=== PATIENT | female | born 1995 | race Hispanic/Latino ===

== ENCOUNTER 2023-09-29 08:20 | Emergency (ER) | payer OTHER, SELFPAY ==
[2023-09-29] VITALS (13 sets, daily range): BP systolic 111–121; BP diastolic 65–84; PULSE 67–95; RESP 12–20; TEMP 36.4; O2SAT 99–100
--- NOTE | ~2023-09-29 | US_ITS ---
EXAMINATION: US OB <= 14 weeks fetus DATE: 09/29/2023 11:00 INDICATION: Vaginal bleeding during first trimester TECHNIQUE: Real-time pelvic transabdominal and transvaginal ultrasound was performed. COMPARISON: None. FINDINGS: The uterus measures 10.3 x 8.5 x 10.0 cm. There is an intrauterine gestational sac. h eart motion is identified measuring 159 beats per minute (bpm) by M-mode Doppler. The crown rum p length measures 4.9 cm, which correlates with an estimated gestational age of 11 weeks and 5 day(s) (+/-) 7 day(s). The left ovary is not visualized however no left adnexal abnormality is seen. The right ovary measure s 3.8 x 2.1 x 2.0 cm. There is normal vascular flow in the right ovary. There is no free fluid in the pelvis. IMPRESSION: 1. Live intrauterine with an estimated gestational age of 11 weeks and 5 day(s) (+/-) 7 day (s) and an estimated delivery date of 04/14/2024. No sonographic correlate for the patient's symptoms. Reviewed, dictated and finalized at location F. IMPRESSION: 1. Live intrauterine with an estimated gestational age of 11 weeks an d 5 day(s) (+/-) 7 day(s) and an estimated delivery date of 04/14/2024. No sonog raphic correlate for the patient's symptoms.
[2023-09-29 08:52] LABS: Basophils Absolute Auto 0.1 K/mm3 (0.0-0.1); Basophils Percent Auto 0.5 % (0.2-1.2); Eosinophils Percent Auto 0.4 % (0-4.4); Hematocrit 38.3 % (37.0-47.0); Hemoglobin 12.6 g/dL (12.0-15.0); Immature Granulocyte Absolute 0.02 K/mm3 (0.00-0.031); Immature Granulocyte Percent A 0.2 % (0-0.5); Lymphocytes Absolute Auto 2.02 K/mm3 (0.9-3.2); Lymphocytes Percent Auto 20.6 % (18.3-44.2); Mean Corpuscular HGB Conc 32.9 g/dl (32-36); Mean Corpuscular Hemoglobin 29.4 pg (26-34); Mean Corpuscular Volume 89.3 fl (80-100); Monocytes Absolute Auto 0.6 K/mm3 (0.1-0.6); Monocytes Percent Auto 5.7 % (2.6-8.5); Neutrophils Absolute Auto 7.1 K/mm3 (1.3-6.7); Neutrophils Percent Auto 72.6 % (45.5-73.1); Platelet Count Result 320 k/mm3 (150-375); Red Blood Count 4.29 M/mm3 (4.2-5.4); Red Cell Distribution Width 13.7 % (11.5-14.5); White Blood Count 9.8 K/mm3 (4.5-10.0)
--- NOTE | 2023-09-29 08:55 | ED.PREGNANCY ---
HPI - General Chief complaint: Vaginal Bleeding Stated complaint: vag bleed, 14 weeks Time Seen by Provider: 09/29/23 08:28 History of Present Illness HPI Narrative: 28-year-old female at approximately 13 weeks gestation presenting with spotting. Patient states her LMP was June 27. She had an appointment with her OB several weeks ago and they got an ultrasound which showed positive cardiac activity. Patient states that she woke up this morning and had some spotting so she became concerned and came in for evaluation. She denies any pain. She denies bright red blood or clots. States that it is just pink when she wipes. No further complaints. Related Data Allergies Allergy/AdvReac Type Severity Reaction Status Date / Time No Known Allergies Allergy Unverified 10/30/18 17:24 Review of Systems Review of Systems: All systems reviewed & are unremarkable except as noted in HPI and below Exam Narrative: GENERAL: Well-appearing, in no acute distress, pleasant and cooperative HEAD: Normocephalic, atraumatic. EYES: PERRLA and EOMI. ENT: Grossly unremarkable NECK: Supple. CHEST: Clear to auscultation. No respiratory distress. HEART: Regular rate and rhythm. ABDOMEN: Soft, nontender, nondistended EXTREMITIES: Normal range of motion. No edema. SKIN: Warm, dry, no rash. NEURO: No focal deficits. Alert and oriented x3. PSYCH: Normal mood and affect. Course Vital Signs Vital signs: Vital Signs Temperature 97.6 F 09/29/23 08:39 Pulse Rate 92 09/29/23 08:39 Respiratory Rate 16 09/29/23 08:39 Blood Pressure 121/84 09/29/23 08:39 Pulse Oximetry 99 09/29/23 08:39 Oxygen Delivery Room Air 09/29/23 08:39 Temperature 97.6 F 09/29/23 08:39 Pulse Rate 90 09/29/23 10:31 Respiratory Rate 14 09/29/23 10:31 Blood Pressure 115/70 09/29/23 10:31 Pulse Oximetry 99 09/29/23 10:31 Oxygen Delivery Room Air 09/29/23 08:39 MDM - OB/Uterine Contractions MDM Narrative Medical decision making narrative: 28-year-old female presenting with vaginal spotting in the setting of early . Vital stable. Exam remarkable for the above. Blood work is unremarkable. Stable hemoglobin. No leukocytosis. UA is concerning for UTI. ultrasound reveals a living intrauterine fetus with positive cardiac activity. Discussed the reassuring work-up with the patient. We will start her on Keflex for the UTI. Advised OB and PCP follow-up. Appropriate return precautions given. Discharged in stable condition. Differential Diagnosis Differential diagnosis: Likely other (UTI, vaginal bleeding, early ) Medical Records Attestation: I reviewed the patient's medical records. Lab Data Attestation: I reviewed the patient's lab results. 09/29/23 08:42 09/29/23 08:45 Labs: Lab Results 09/29/23 09/29/23 09/29/23 Range/Units 08:42 08:45 10:15 WBC 9.8 (4.5-10.0) K/mm3 RBC 4.29 (4.2-5.4) M/mm3 Hgb 12.6 (12.0-15.0) g/dL Hct 38.3 (37.0-47.0) % MCV 89.3 (80-100) fl MCH 29.4 (26-34) pg MCHC 32.9 (32-36) g/dl RDW 13.7 (11.5-14.5) % Plt Count 320 (150-375) k/mm3 MPV 10.0 (7.4-10.4) fl Immature Gran % (Auto) 0.2 (0-0.5) % Neut % (Auto) 72.6 (45.5-73.1) % Lymph % (Auto) 20.6 (18.3-44.2) % Grimes % (Auto) 5.7 (2.6-8.5) % Eos % (Auto) 0.4 (0-4.4) % Baso % (Auto) 0.5 (0.2-1.2) % Lymph # (Auto) 2.02 (0.9-3.2) K/mm3 Grimes # (Auto) 0.6 (0.1-0.6) K/mm3 Eos # (Auto) 0.0 (0-0.3) K/mm3 Baso # (Auto) 0.1 (0.0-0.1) K/mm3 Abs Immat Gran (auto) 0.02 (0.00-0.031) K/mm3 Absolute Neuts (auto) 7.1 H (1.3-6.7) K/mm3 Absolute Nucleated RBC 0.0 (0.0-0.012) K/mm3 Nucleated RBC % 0.0 (0.0-0.2) % PT 13.3 (11.1-14.7) Seconds INR 1.0 APTT 27.9 (22.3-36.8) SECONDS Sodium 133 L (137-145) mmol/L Potassium 3.7 (3.4-5.0) mmol/L Chloride 108 H
[2023-09-29 09:03] LABS: Prothrombin Time 13.3 Seconds (11.1-14.7)
[2023-09-29 09:04] LABS: Anion Gap 6 mmol/L (8-16); Blood Urea Nitrogen 6 mg/dL (7-17); Calcium 8.6 mg/dL (8.4-10.2); Carbon Dioxide 19 mmol/L (22-30); Chloride 108 mmol/L (98-107); Estimated CRCL calculation 151 ml/min; Estimated Glomerular Filt Rate > 60; Glucose 79 mg/dL (65-110); Partial Thromboplastin Time 27.9 SECONDS (22.3-36.8); Potassium 3.7 mmol/L (3.4-5.0); Sodium 133 mmol/L (137-145)
[2023-09-29 10:29] LABS: Appearance Urine Clear (Clear); Bacteria Urine Rare /hpf; Bilirubin Urine Negative (Negative); Blood Urine 1+ (Negative); Color Urine Yellow (Yellow); Glucose Urine UA Negative (Negative); Ketones Urine Negative (Negative); Leukocyte Esterase Ur 2+ LEU/UL (Negative); Nitrate Urine Negative (Negative); Non Pathogenic Casts 0-2; Protein Urine Negative (Negative); RBC Urine 0-2 /hpf (0-2); Specific Grav Ur 1.011 (1.001-1.035); Squamous Epithelial Cell Urine Few /hpf (Few); Urobilinogen Urine 0.2 mg/dL (<2.0); pH Urine 7.5 (5.0-9.0)
[2023-09-29 10:31] LABS: Add Urine Microscopic? YES
== END 2023-09-29 12:36 | disposition home or self-care (01) ==
PROVIDERS: Emergency Provider Emergency Medicine
DX: O23.41 Unspecified infection of urinary tract in pregnancy, first trimester (principal); N39.0 Urinary tract infection, site not specified; Z3A.11 11 weeks gestation of pregnancy
CPT/HCPCS: 36415; 76801; 80048; 81001; 81025; 84702; 85025; 85461; 85610; 85730; 86850; 86900; 86901; 87086; 87088; 99284

== ENCOUNTER 2024-02-03 16:55 | Outpatient (RCR) | payer OTHER, SELFPAY ==
[2024-02-03 18:03] VITALS: BP 107/72; PULSE 90
== END 2024-05-03 23:59 | disposition home or self-care (01) ==
LOC: ANHOBOP 16:55
PROVIDERS: Visit Provider Advanced Practice Midwife
DX: O36.8130 Decreased fetal movements, third trimester, not applicable or unspecified (principal); Z3A.29 29 weeks gestation of pregnancy
CPT/HCPCS: 59025